=== PATIENT | male | born 1970 | race Caucasian/White ===

== ENCOUNTER 2020-10-07 13:33 | Emergency (ER) | payer OTHER ==
[2020-10-08 15:33] LABS: SARS-CoV-2 PCR by NAA Not Detected (NotDetected)
== END 2020-10-07 15:08 | disposition home or self-care (01) ==
LOC: BURERS 13:33
DX: R53.83 Other fatigue (principal); R42 Dizziness and giddiness; R11.0 Nausea; Z20.822 Contact with and (suspected) exposure to COVID-19
CPT/HCPCS: 99283; U0003; U0005